=== PATIENT | male | born 1970 | race African-American/Black ===

== ENCOUNTER 2016-11-20 21:23 | Emergency (ER) | payer SELFPAY ==
[~2016-11-20 21:23] MED LIST: PHENERGAN25 MG PO; ULTRAM PO
== END 2016-11-20 23:31 | disposition home or self-care (01) ==
LOC: CFTX 21:23 → CED 21:23 → CFTX 23:06
DX: M54.32 Sciatica, left side (principal); J45.909 Unspecified asthma, uncomplicated; F17.210 Nicotine dependence, cigarettes, uncomplicated; Z91.013 Allergy to seafood; Z88.8 Allergy status to other drugs, medicaments and biological substances
CPT/HCPCS: 99283

== ENCOUNTER 2017-02-28 16:32 | Emergency (ER) | payer OTHER ==
[~2017-02-28] VITALS: Ht 177.8 cm; Wt 102.0 kg
--- NOTE | ~2017-02-28 | EKG ---
PATIENT: MONTSE GALVAN UNIT #: [id number] Ventricular Rate: 72 BPM Atrial Rate: 72 BPM P-R Interval: 130 ms QRS Duration: 98 ms Q-T Interval: 394 ms QTC Calculation(Bezet): 431 ms P [place]: 40 degrees Calculated R [place]: 55 degrees Calculated T [place]: 48 degrees Diagnosis Line: Normal sinus rhythm Diagnosis Line: Normal ECG Diagnosis Line: No previous ECGs available Diagnosis Line: Confirmed by DEYANIRA LEACH MD ([id number]) on 02/28/2017 Diagnosis Line: 10:18:16 PM INTERPRETING MD: HAYLEE ROSENBERG
--- NOTE | ~2017-02-28 | CR63 ---
[facility] A Service of [facility] / [facility] RADIOLOGY TEXT RESULTS PATIENT: MONTSE GALVAN LOCATION: [facility] : [birth year] UNIT #: [id number] AGE: [address]: Gama Melendez MD SEX: M ORDER DR: [id number] [facility]. [place], [place] [address] [id number] E MR#: [id number] Acc #: [id number] NAME: MONTSE GALVAN : 1970 SEX: M STUDY DATE/TIME: 02/28/2017 17:28 UNIT: [facility] ROOM: STUDY DESCRIPTION: CR Chest 2 View Attending Physician: Gama Melendez M.D. Ordering Physician: Gama Melendez M.D. Primary Care Physician: Primary Care Physician No MEDICAL IMAGING REPORT This report is preliminary unless electronic signature is present EXAM Chest PA and lateral 02/28/2017 HISTORY Shortness of breath and right side chest pain for two years. Off and on, worsening in the last two months. No known injury. FINDINGS PA and lateral examination of the chest upright shows a good expansion of the parenchyma with a normal distribution of the pulmonary vascularity. There is no indication of congestion, effusion, infiltrate, tumor, or nodular density. The pleural reflections and diaphragmatic contours are normal. The cardiac silhouette and mediastinal anatomy is within normal limits. IMPRESSION Normal chest. Dictated by... Guillermo Mcallister M.D. THIS IS AN ELECTRONICALLY VERIFIED REPORT Guillermo Mcallister M.D. at 03/01/2017 2:15 PM SANGEETA/jean-paul TD: 03/01/2017 09:23 JOB #: [id number] [facility] A Service of [facility] / [facility] RADIOLOGY TEXT RESULTS PATIENT: MONTSE GALVAN LOCATION: [place] : 70 UNIT #: [id number] AGE: [address]: Gama Melendez MD SEX: M ORDER DR: MEDICAL IMAGING REPORT Page 1 of 1 COPY
[2017-02-28 16:51] LABS: BASOPHIL% 0.4 % (0-2.5); EOSINOPHIL# 0.2 X10e3 (0-0.7); EOSINOPHIL% 3.4 % (0.0-7.0); HEMATOCRIT 49.1 % (38.0-50.0); HEMOGLOBIN 16.7 gm/dL (13.0-16.0); LYMPHOCYTE# 2.5 X10e3 (1.0-3.5); LYMPHOCYTE% 34.7 % (17.0-45.0); MEAN CORPUSCULAR HGB CONC 34.1 g/dL (30-36); MEAN PLATELET VOLUME 7.6 FL (6.5-11.5); MONOCYTE# 0.4 X10e3 (0-1.0); MONOCYTE% 6.1 % (3.0-12.0); NEUTROPHIL% 55.4 % (40-75); PLATELET COUNT 228 X10e3 (140-420); RED CELL DISTRIBUTION WIDTH 13.9 % (11.0-15.5); WHITE BLOOD COUNT 7.3 X10e3 (4.0-10.5)
[2017-02-28 16:55] LABS: DIFF IND NO
[2017-02-28 17:14] LABS: ALBUMIN SERUM 4.5 g/dL (3.5-5.0); BILIRUBIN, DIRECT 0.1 mg/dL (0.0-0.2); BILIRUBIN,TOTAL 1.1 mg/dL (0.2-2.0); BUN/CREATININE RATIO 7.69; CALCIUM SERUM 9.6 mg/dL (8.4-10.2); CREATININE SERUM 1.3 mg/dL (0.6-1.4); GLOM FILT RATE Estimated 75.9 mL/min (>60); POTASSIUM 4.6 mmol/L (3.5-5.1); PROTEIN TOTAL SERUM 8.3 g/dL (6.0-8.3)
[2017-02-28 17:18] LABS: POC - CKMB <1.0 ng/mL (0.0-7.9); POC - TROPONIN <0.05 ng/mL (<=0.05)
[2017-02-28 20:40] LABS: POC - CKMB <1.0 ng/mL (0.0-7.9); POC - TROPONIN <0.05 ng/mL (<=0.05)
== END 2017-02-28 20:59 | disposition home or self-care (01) ==
LOC: CED 16:32
PROVIDERS: Emergency Medicine
DX: R10.11 Right upper quadrant pain (principal); F17.200 Nicotine dependence, unspecified, uncomplicated; Z88.8 Allergy status to other drugs, medicaments and biological substances; Z91.013 Allergy to seafood
CPT/HCPCS: 36415; 71020; 80048; 80076; 82553; 84484; 85025; 93005; 99284

== ENCOUNTER 2017-03-15 13:06 | Emergency (ER) | payer OTHER ==
[~2017-03-15] VITALS: Ht 180.3 cm; Wt 102.0 kg
--- NOTE | ~2017-03-15 | US67 ---
[facility] A Service of [facility] & [facility] RADIOLOGY TEXT RESULTS PATIENT: MONTSE AGLVAN LOCATION: [facility] : [birth year] UNIT #: [id number] AGE: [address]: Alverto Segal MD SEX: M ORDER DR: [id number] [facility] [address]. [place], [place] [address] [id number] E MR#: [id number] Acc #: [id number] NAME: MONTSE GALVAN : 1970 SEX: M STUDY DATE/TIME: 03/15/2017 18:03 UNIT: [facility] ROOM: STUDY DESCRIPTION: US Gallbladder Attending Physician: Alverto Segal M.D. Ordering Physician: Alverto Segal M.D. Primary Care Physician: Primary Care Physician No MEDICAL IMAGING REPORT This report is preliminary unless electronic signature is present EXAM Gallbladder ultrasound 03/15/2017 HISTORY Right upper quadrant abdominal pain for 2 weeks intermittently, worse after eating. FINDINGS Ultrasound examination of the gallbladder is negative. There is no cholelithiasis, gallbladder wall thickening, or bile duct dilatation. The visualized liver is negative. IMPRESSION Negative gallbladder ultrasound examination. Dictated by... Guillermo Mcallister M.D. THIS IS AN ELECTRONICALLY VERIFIED REPORT Guillermo Mcallister M.D. at 03/18/2017 7:47 AM KRT/dee TD: 03/16/2017 07:57 JOB #: [id number] MEDICAL IMAGING REPORT Page 1 of 1 COPY
[2017-03-15 13:55] LABS: URINE SOURCE CLEAN CATCH
[2017-03-15 14:01] LABS: BASOPHIL# 0.1 X10e3 (0-0.3); BASOPHIL% 0.7 % (0-2.5); EOSINOPHIL# 0.4 X10e3 (0-0.7); EOSINOPHIL% 4.7 % (0.0-7.0); HEMATOCRIT 43.1 % (38.0-50.0); HEMOGLOBIN 14.8 gm/dL (13.0-16.0); LYMPHOCYTE# 2.5 X10e3 (1.0-3.5); LYMPHOCYTE% 31.6 % (17.0-45.0); MEAN CELL VOLUME 91.2 FL (83-96); MEAN CORPUSCULAR HEMOGLOBIN 31.3 PG (28-34); MEAN CORPUSCULAR HGB CONC 34.3 g/dL (30-36); MONOCYTE# 0.6 X10e3 (0-1.0); MONOCYTE% 7.2 % (3.0-12.0); NEUTROPHIL# 4.3 X10e3 (1.5-7.1); NEUTROPHIL% 55.8 % (40-75); PLATELET COUNT 185 X10e3 (140-420); RED BLOOD COUNT 4.72 X10e (3.90-5.60); WHITE BLOOD COUNT 7.8 X10e3 (4.0-10.5)
[2017-03-15 14:04] LABS: DIFF IND NO
[2017-03-15 14:07] LABS: URINE APPEARANCE CLEAR; URINE BILIRUBIN NEG (NEG); URINE BLOOD NEG (NEG); URINE COLOR YELLOW; URINE GLUCOSE NEG (NEG); URINE KETONE NEG (NEG); URINE LEUKOCYTE ESTERASE NEG (NEG); URINE NITRATE NEG (NEG); URINE PROTEIN NEG (NEG); URINE UROBILINOGEN 0.2 MG/DL (NEG)
[2017-03-15 14:12] LABS: CULTURE INDICATED? NO
[2017-03-15 14:45] LABS: ALBUMIN SERUM 4.2 g/dL (3.5-5.0); BILIRUBIN, DIRECT 0.1 mg/dL (0.0-0.2); BILIRUBIN,INDIRECT 0.7 mg/dL (0.0-0.9); BILIRUBIN,TOTAL 0.8 mg/dL (0.2-2.0); BUN/CREATININE RATIO 13.33; CALCIUM SERUM 9.2 mg/dL (8.4-10.2); CREATININE SERUM 1.2 mg/dL (0.6-1.4); GLOM FILT RATE Estimated 83.6 mL/min (>60); POTASSIUM 4.2 mmol/L (3.5-5.1); PROTEIN TOTAL SERUM 7.5 g/dL (6.0-8.3)
== END 2017-03-15 19:23 | disposition home or self-care (01) ==
LOC: CED 13:06
PROVIDERS: Emergency Medicine
DX: R10.13 Epigastric pain (principal); F17.200 Nicotine dependence, unspecified, uncomplicated; Z91.013 Allergy to seafood; Z88.8 Allergy status to other drugs, medicaments and biological substances
CPT/HCPCS: 76705; 80048; 80076; 81003; 82150; 83690; 85025; 96372; 99284; J1885